=== PATIENT | female | born 1985 | race Caucasian/White ===

== ENCOUNTER 2018-10-29 21:59 | Observation (INO) | payer OTHER ==
[2018-10-29] MEDS ORDERED: RANITIDINE 50 MG/2 ML VIAL ONE (22:00)
[2018-10-29] MEDS ORDERED: ALBUTEROL 3 ML DEYVIAL ONE (22:00)
[2018-10-29] MEDS ORDERED: DEXAMETHASONE 10 MG/ML VIAL ONE (22:05)
[2018-10-29] MEDS ORDERED: IPRATROPIUM/ALBUTEROL 3 ML DEYVIAL ONE (22:07)
[2018-10-29] MEDS ORDERED: EPINEPHrine 1 MG/ML INJ ONE (22:08)
[2018-10-29] MEDS ORDERED: IPRATROPIUM/ALBUTEROL 3 ML DEYVIAL IH ONE ×2 (22:09→22:11)
[2018-10-29] MEDS ORDERED: DEXAMETHASONE 10 MG/ML VIAL IM ONE (22:10)
[2018-10-29] MEDS ORDERED: EPINEPHrine 1 MG/ML INJ IM ONE ×2 (22:11→22:13)
[2018-10-29] MEDS ORDERED: NS 1,000 ML IV ONE ×2 (22:12)
[2018-10-29] MEDS ORDERED: methylPREDNISolone SOD SUCC 125 MG/2 ML VIAL IM ONE (22:14)
--- NOTE | 2018-10-29 22:21 | EDPHY ---
H & P Stated Complaint: Allergic reation Source: Patient Time Seen by Provider: 10/29/18 22:16 HPI/ROS: HPI CHIEF COMPLAINT: Severe allergic reaction, anaphylaxis HISTORY OF PRESENT ILLNESS: A 33-year-old female, history of asthma, additionally history of nut allergy, states she ate pesto sauce this evening on pizza that had not seen it. She has a severe nut allergy. She states she did not realize there was nuts in it. She arrives to the emergency room intoxicated with alcohol. States she had multiple alcoholic beverages tonight. She she arrives by private vehicle through the front door, and I greeted her upon arrival to ER room 11 where she was found to be in severe distress, anaphylaxis, with tongue swelling, wheezing , tachycardia, periorbital swelling, diffuse urticaria, and clamped down. We Were unable to get an IV she emergently had a left tib-fib IO placed. She was immediately given IM epinephrine 0.3 mg x2 doses, IV Decadron 10 mg IM, IV Solu-Medrol 125 mg IM, IV Benadryl 50 mg, IV fluid bolus 2 L, Placed on full field auto appraiser with pulse ox. Patient also received DuoNeb breathing treatment x2. Patient is doing much better after initial resuscitation. Past Medical History: Nut allergy, asthma. Past Surgical History: No recent surgical history Social History: Denies daily use of drugs or tobacco. Had alcohol this evening. Multiple drinks. Family History: Noncontributory ROS REVIEW OF SYSTEMS: 10 Systems were reviewed and negative with the exception of the elements mentioned in the history of present illness. Exam Constitutional severe distress upon arrival, heart rate noted to be in the 170s. triage nursing summary reviewed, vital signs reviewed, awake/alert. Eyes additionally periorbital swelling significantly. Lid edema. HENT oropharynx tongue swelling present, uvula midline, no stridor, lip swelling bilaterally, Respiratory decreased air movement bilaterally, wheezing bilaterally Cardiovascular tachycardia, regular rhythm, no murmur, no edema, distal pulses normal. Gastrointestinal soft, non-tender, no rebound, no guarding, normal bowel sounds, no distension, no pulsatile mass. Genitourinary no CVA tenderness. Musculoskeletal no midline vertebral tenderness, full range of motion, no calf swelling, no tenderness of extremities, no meningismus, good pulses, neurovascularly intact. Skin clamp down, cool mottled skin. Neurologic sleepy, slurring speech, smells of alcohol. Psychiatric normal mood/affect. Heme/Lymph/Immune no lymphadenopathy. Differential Diagnosis: Includes but is not limited to in a particular order severe anaphylaxis, anaphylactic shock, severe nut allergy, severe allergic reaction. Medical Decision Making: Plan for this patient she arrived in severe anaphylaxis with tongue swelling, facial swelling, clamp down with no IV access , and IO was emergently placed, she received 0.3 mg IM epinephrine x2, IM Solu- Medrol, 10 mg IM Decadron, 50 mg IV Benadryl, 2 duo nebs, full facemask non- rebreather, 2 L of normal saline, field auto appraiser, she now has after IO placement in her left tib-fib good IV access. She is slowly responding. 2221: Patient on full field auto appraiser being closely monitored. Airway set up at bedside. Re-evaluation: Critical Care: Total Critical Care Time Spent Managing this Patient: 85 Minutes. This time was spent Exclusively with this patient. This Care was exclusive of procedures. The Organ System/life at risk was severe allergic reaction, anaphylaxis This Patient was in Critical Condition because severe allergic reaction, anaphylaxis 1209: Patient doing much improved. Resting comfortably. Plan for observation overnight in Step-Down Unit watch closely for further reaction. Dr. Higuera Consulted for admission. She agrees for admission SDU. 1247AM: Patient's IO will be removed as she has good IV access. The patient had an IO placed in the left anterior tib-fib region. This is emergently placed upon arrival she was in critical condition. And we are unable to get IV access. Indication for IO placement severe anaphylaxis anaphylactic shock with impending airway failure respiratory failure need for IV access and emergent medication administration. Patient tolerated IO very well. The areas clean prior to IO placement. I was now removed in patient resting comfortably. Dressing in place (MacDade,Cristiano) Constitutional: Initial Vital Signs Heart Rate 166 H 10/29/18 22:02 Blood Pressure 108/92 H 10/29/18 22:02 O2 Delivery Mode Room Air O2 (L/minute) 15 Allergies/Adverse Reactions: tree nut [Nuts] Allergy (Verified 10/29/18 22:03) Home Medications: Medication Instructions Recorded Albuterol [Proventil Inhaler HFA 1 - 2 puffs IH Q4H PRN 10/29/18 (*)] Montelukast Sodium [Singulair 10 10 mg PO HS 10/30/18 mg (*)] Multivitamins [Multivitamin (*)] 1 each PO HS 10/30/18 Valacyclovir HCl [Valtrex] 2,000 mg PO BID PRN 10/30/18 diphenhydrAMINE [Benadryl 25 MG 25 - 50 mg PO Q6HRS PRN cap 10/30/18 (*)] Medical Decision Making ED Course/Re-evaluation: 0 700: Patient is signed out to me at change of shift. The patient is awaiting placement on the floor. The patient complains of mild sore throat but feels much better. She has no shortness of breath or chest pain. Her pharynx is open and normal. Her lungs are clear bilaterally. She has no accessory muscle use or signs of respiratory distress. She has no rash. (Antonella Hartman) - Data Points Laboratory Results: Laboratory Results 10/29/18 22:25 10/29/18 22:25 Medications Given: Discontinued Medications Albuterol/Ipratropium (Duoneb) 3 ml IH EDNOW ONE Stop: 10/29/18 22:10 Last Admin: 10/29/18 22:05 Dose: 3 ml Albuterol/Ipratropium (Duoneb) 3 ml IH EDNOW ONE Stop: 10/29/18 22:12 Last Admin: 10/29/18 22:09 Dose: 3 ml Dexamethasone (Decadron Injection) 10 mg IM EDNOW ONE Stop: 10/29/18 22:11 Last Admin: 10/29/18 22:05 Dose: 10 mg Diphenhydramine HCl (Benadryl Injection) 50 mg IVP EDNOW ONE Stop: 10/29/18 22:10 Last Admin: 10/29/18 22:08 Dose: 50 mg Epinephrine HCl (Epinephrine) 0.3 mg IM EDNOW ONE Stop: 10/29/18 22:12 Last Admin: 10/29/18 22:03 Dose: 0.3 mg Epinephrine HCl (Epinephrine) 0.3 mg IM EDNOW ONE Stop: 10/29/18 22:14 Last Admin: 10/29/18 22:07 Dose: 0.3 mg Sodium Chloride (Ns) 1,000 mls @ 0 mls/hr IV ONCE ONE PRN Reason: Wide Open Stop: 10/29/18 22:13 Last Admin: 10/29/18 22:12 Dose: 1,000 mls Sodium Chloride (Ns) 1,000 mls @ 0 mls/hr IV ONCE ONE PRN Reason: Wide Open Stop: 10/29/18 22:13 Last Admin: 10/29/18 22:12 Dose: 1,000 mls Sodium Chloride (Ns) 1,000 mls @ 100 mls/hr IV CONT SHAWN Stop: 04/28/19 00:59 Last Admin: 10/30/18 03:05 Dose: 1,000 mls Methylprednisolone Sodium Succinate (Solu-Medrol) 125 mg IM EDNOW ONE Stop: 10/29/18 22:15 Last Admin: 10/29/18 22:05 Dose: 125 mg Methylprednisolone Sodium Succinate (Solu-Medrol) 60 mg IVP DAILY SHAWN Stop: 04/28/19 08:59 Last Admin: 10/30/18 08:38 Dose: 60 mg Departure - Departure Disposition: [facility] Acute Clinical Impression: Acute anaphylaxis Qualifiers: Encounter type: initial encounter Qualified Code(s): T78.2XXA - Anaphylactic shock, unspecified, initial encounter Condition: Critical
[2018-10-29 22:46] LABS: PLATELET COUNT 389 10^3/uL (150-400)
[2018-10-30] MEDS ORDERED: diphenhydrAMINE 25 MG CAP PO PRN (00:47)
[2018-10-30] MEDS ORDERED: ACETAMINOPHEN 325 MG TAB PO PRN (00:47)
[2018-10-30] MEDS ORDERED: ONDANSETRON 4 MG/2 ML VIAL IVP PRN (00:47)
[2018-10-30] MEDS ORDERED: ONDANSETRON DISINTEGRATING 4 MG TAB PO PRN (00:47)
[2018-10-30] MEDS ORDERED: ALBUTEROL 3 ML DEYVIAL IH PRN (00:47)
[2018-10-30] MEDS ORDERED: EPINEPHrine 1 MG/ML INJ IM PRN (00:51)
[2018-10-30] MEDS ORDERED: NS 1,000 ML IV SCH (01:00)
--- NOTE | 2018-10-30 05:13 | GHP ---
[f rep st] HISTORY AND PHYSICAL DATE OF ADMISSION: 10/30/2018 SOURCE: Patient provides history, appears reliable. EMR was reviewed and case discussed with ED pro vider. CHIEF COMPLAINT: Anaphylaxis and shortness of breath. HISTORY OF PRESENT ILLNESS: This is a very pleasant, 33-year-old female with past medical history si gnificant for asthma and severe pine nut allergy, presents to the emergency department this evening f ollowing a meal at a restaurant. Patient reports that she ordered pesto pasta and had several alcoho lic drinks. She is unsure if the pesto contained any pine nuts, but she developed tongue swelling, f acial swelling, shortness of breath and presented to the emergency department after taking 2 Benadryl . The patient arrived to the emergency department in severe respiratory distress. They were not abl e to obtain IV access and so IO was placed. Patient did receive 2 doses of epinephrine, Solu-Medrol, Decadron, Benadryl, ranitidine, and IV fluids as well as albuterol nebulizer with improvement of her symptoms. At time of my interview patient remains tachycardic in the 140s and sinus rhythm, and not es that she had a little bit of residual tongue swelling and lip swelling, but otherwise reports that her symptoms are significantly improved and her shortness of breath has completely resolved. Guy gutierrez reports that before this episode she was otherwise feeling in her usual state of health. REVIEW OF SYSTEMS: Ten systems reviewed, negative except as noted above. ALLERGIES: Tree nuts, seasonal allergies. HOME MEDICATIONS: Patient reports that she does not have an EpiPen but she does carry Benadryl with her at all times. Albuterol HFA p.r.n.. PAST MEDICAL HISTORY: Significant for asthma, tree nut allergy, seasonal allergies, dander allergy. PAST SURGICAL HISTORY: Significant for wisdom tooth extraction. FAMILY HISTORY: Significant for father and brother with asthma. SOCIAL HISTORY: Patient denies any tobacco or drug use. She occasionally drinks alcohol. CODE STATUS: Full. PHYSICAL EXAMINATION: VITAL SIGNS: Upon arrival to the emergency department, blood pressure is 108/ 92, heart rate 166, initial O2 saturation 86% on room air with heart rate 28. CURRENT VITAL SIGNS: Blood pressure is 101/54, heart rate in the 120s to 140s, respiratory rate 18, O2 saturation 92% on r oom air. GENERAL: No acute distress. Very pleasant young adult female is resting quietly in bed. She is sleeping, wakes easily to name. HEAD: Normocephalic, atraumatic. EYES: Extraocular muscles are grossly intact. Pupils equal, round, reactive to light bilaterally and symmetric. No scleral i cterus or conjunctival injection. ENT: Mucous membranes appear moist. No oropharyngeal erythema or exudates. Patient's lips are still slightly swollen. Tongue without any significant swelling at th is time. NECK: Supple, trachea midline. CV: Regular rate and rhythm, but tachycardic in the 120s. No murmurs, rubs, or gallops appreciated but limited exam. RESPIRATORY: Lungs are clear to auscul tation bilaterally. No wheezes, rales, or rhonchi appreciated. ABDOMEN: Positive bowel sounds. So ft, nontender to palpation. No rebound, guarding, or masses. : No suprapubic tenderness to palpa tion. No [place] catheter in place. EXTREMITIES: No cyanosis, clubbing, or edema appreciated. Patie nt with 2+ pedal pulses. NEURO: Grossly nonfocal. Moves all extremities. Strength intact. MUSCUL OSKELETAL: As above. PSYCH: The patient is slightly anxious but pleasant and cooperative. Thought process, content and questions appropriate. LABORATORY STUDIES: WBC 12.03, H and H is 14.9 and 43.5, MCV 89.5, platelet count is 389, no bands. Sodium 137, potassium 3.2, chloride 110, CO2 is 19, anion gap 8, BUN 13, creatinine 0.8, GFR greater than 60, glucose 119, calcium 7.9. Alcohol level is 186. ASSESSMENT/PLAN: Very pleasant 33-year-old female presents with complaints of sudden onset shortness of breath, facial swelling. 1. Anaphylaxis. The patient suspects that there were nuts in her evening meal at a restaurant. Sta tus post 2 doses of epinephrine, Benadryl, Solu-Medrol, Decadron, albuterol, and ranitidine. The pat [place] reports that she does not have a prescription for an EpiPen, but does carry around Benadryl. Sh e would be amenable to a prescription for EpiPen at discharge. The patient does continue to have raina e swelling and some tachycardia. A.m. additional dose of Solu-Medrol has been ordered for the renee bryson. Patient's saturations and blood pressures are improved. 2. Tachycardia, likely related to patient receiving 2 doses of epinephrine as well as anaphylactic r eaction. 3. Asthma without exacerbation. Albuterol p.r.n. 4. Leukocytosis, likely slightly elevated in setting of anaphylaxis and reactive nature. 5. Hypokalemia, replacement. 6. Fluid, electrolyte, nutrition status post several liters of intravenous fluid. Continue with raina e supplementation. Advance diet as tolerated. Electrolyte replacement as noted above. 7. Prophylaxis. Sequential compression devices. Low risk. Encourage mobilization when tolerated. 8. Cor status full. 9. Disposition: The patient admitted to observation status on the SDU floor for close cardiac and r espiratory monitoring in setting of anaphylactic reaction. /[id number]/MODL
[2018-10-30] MEDS ORDERED: methylPREDNISolone SOD SUCC 125 MG/2 ML VIAL IVP SCH (09:00)
[2018-10-30] MEDS ORDERED: PROTOCOL POTASSIUM 1 DOSE MISC PRN (09:39)
[2018-10-30] MEDS ORDERED: ALBUTEROL 60 PUFFS/8 GM MDI IH PRN (09:40)
[2018-10-30] MEDS ORDERED: valACYclovir 500 MG TAB PO PRN (10:00)
--- NOTE | 2018-10-30 15:50 | PDDCSUM ---
Discharge Summary Discharge Summary: Dates of service --admit and dc on 10/30/18 Consultatoins/procedures: none Hospital course by problem # anaphylaxis: patient with allergy to tree nuts and inadvertent exposure likley due to pesto, treated with benadryl, IV steroids, epinephrine, ranitidine and nebs with improvement in her sxs. Patient now eating/ambulating and breathing normally without rash or swelling, Cautoined regarding pesto. # asthma: without e/o acute exacerbation, lungs clear, did receive multiple nebs # tachycarida; IN part due to anaphylaxis but also driven by repeated albuterol treatments # hypokalemia: repleted # alcohol intoxication: noted on arrival, BAL of 180, does not have chronic drinking tendency per her report DC home f/u with PCP per routine no medication changes > 35 min for discharge more than half in coordination of care
[2018-10-30 15:56] VITALS: BP 125/76
[2018-10-30] MEDS ORDERED: MULTIVITAMINS 1 EACH TAB PO SCH (21:00)
[2018-10-30] MEDS ORDERED: MONTELUKAST SODIUM 10 MG TAB PO SCH (21:00)
== END 2018-10-30 16:39 | disposition home or self-care (01) ==
LOC: F3E 10-30 07:42
PROVIDERS: ADMIT Family Medicine; ATTEND Family Medicine
PROC: 3E0A3GC Introduction of Other Therapeutic Substance into Bone Marrow, Percutaneous Approach (ICD-10-PCS; principal; 2018-10-30)
DX: T78.05XA Anaphylactic reaction due to tree nuts and seeds, initial encounter (principal); J45.909 Unspecified asthma, uncomplicated; E87.6 Hypokalemia
CPT/HCPCS: 36680; G0378; 96374; G0480; J0171; J1100; J1200; J2780; J2930; J7613